=== PATIENT | female | born 1985 | race African-American/Black ===

== ENCOUNTER 2016-05-31 16:18 | Emergency (ER) | payer OTHER ==
[~2016-05-31] VITALS: Ht 162.6 cm; Wt 49.9 kg
[~2016-05-31 16:18] MED LIST: DOCU-27 PO; GUAI600T38 PO; IBUP-1060 PO; OXYC-323 PO
[2016-05-31 16:41] VITALS: BP 136/90
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
[2016-05-31] MEDS ORDERED: TRAM-29 PO (18:04)
[2016-05-31] MEDS ORDERED: METH-37 PO (18:04)
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
== END 2016-05-31 18:12 | disposition home or self-care (01) ==
LOC: ER 16:18
DX: M54.9 Dorsalgia, unspecified (principal); G44.319 Acute post-traumatic headache, not intractable; R42 Dizziness and giddiness; M54.2 Cervicalgia; Z88.0 Allergy status to penicillin; Z88.1 Allergy status to other antibiotic agents; V89.2XXA Person injured in unspecified motor-vehicle accident, traffic, initial encounter; Y92.413 State road as the place of occurrence of the external cause; Y93.89 Activity, other specified; Y99.8 Other external cause status
CPT/HCPCS: 70450; 72072; 72100; 72125; 81025; 84703; 99284-25